=== PATIENT | male | born 1965 | race Hispanic/Latino ===

== ENCOUNTER 2024-04-30 13:18 | Emergency (ER) | payer SELFPAY ==
[2024-04-30 13:22] VITALS: BMI 29.0
[2024-04-30 13:25] VITALS: BP 145/81
[2024-04-30 13:26] VITALS: BP 145/81
[2024-04-30 13:46] LABS: % Basophils 1.2 % (0-2); % Eosinophils 2.8 % (0-6); % Immature Granulocytes 0.3 % (0-0.5); % Lymphocytes 27.9 % (20.5-51.1); % Monocytes 5.4 % (1.7-9.3); % Neutrophils 62.4 % (42.2-75.2); Absolute Basophils 0.1 10^3/uL (0-0.2); Absolute Eosinophils 0.2 10^3/uL (0-0.7); Absolute Lymphocytes 1.6 10^3/uL (1.2-3.4); Absolute Monocytes 0.3 10^3/uL (0.1-0.6); Absolute Neutrophils 3.6 10^3/uL (1.4-6.5); Hematocrit 43.9 % (39.0-52.0); Hemoglobin 14.7 g/dL (13.0-18.0); Mean Corp Hgb Conc. 33.5 g/dL (33.0-37.0); Mean Corpuscular Hgb 29.2 pg (27.0-31.0); Mean Corpuscular Volume 87.1 fL (80.0-94.0); Mean Platelet Volume 10.9 fL (7.4-10.4); Nucleated Red Blood Cells % 0 % (-); Platelet Count 190 10^3/uL (130-400); Red Blood Cell Count 5.04 10^6/uL (4.70-6.10); Red Cell Dist. Width 12.1 % (11.5-14.5); White Blood Cell Count 5.8 10^3/uL (4.8-10.8)
[2024-04-30 13:58] LABS: ALT (SGPT) 19 U/L (0-50); AST (SGOT) 22 U/L (17-59); Albumin 4.2 g/dl (3.5-5.0); Alkaline Phosphatase 75 U/L (38-126); Blood Urea Nitrogen 25 mg/dl (9-20); Calcium 9.5 mg/dl (8.4-10.2); Carbon Dioxide 27 mmol/L (22-30); Chloride 106 mmol/L (98-107); Estimated Creatinine Clearance 81 ml/min; Glucose 108 mg/dl (70-99); Potassium 4.3 mmol/L (3.5-5.1); Sodium 139 mmol/L (135-145); Total Bilirubin 0.5 mg/dl (0.2-1.3); Total Protein 6.7 g/dl (6.3-8.2); eGFR > 60.00
[2024-04-30 14:00] VITALS: BP 119/81
[2024-04-30 14:09] LABS: Troponin I < 0.012 ng/ml
[2024-04-30] MEDS: TORADOL 15 MG IV (15:00)
[2024-04-30 15:56] LABS: Troponin I < 0.012 ng/ml
--- NOTE | 2024-04-30 16:01 | ED.GENMED ---
History of Present Illness
General
Chief Complaint: Chest Pain
Time Seen by Provider: 04/30/24 13:43
History of Present Illness
History of Present Illness:
59-year-old male with no known past medical presents the emergency department for evaluation of sudden onset of chest discomfort, headache and jaw discomfort beginning while working today. 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
significantly. Symptoms have since improved after receiving baby aspirin by EMS. Has never had similar symptoms. He denies tobacco or alcohol use. No recent fevers or chills. Denies any dyspnea or pleuritic chest pain
Review of Systems
Review of Systems
Allergies reviewed?: Yes
All Other Systems: ROS reviewed and negative except as documented in HPI and ROS
Phy Exam
Physical Exam
Physical Exam:
GEN: Well appearing, NAD, WDWN
HEENT: Oral mucosa moist, no scleral icterus
Cardiac: Regular rate and rhythm, no murmur
Lung: No respiratory distress, no tachypnea, lungs clear to auscultation bilaterally
MSK: No gross deformity or injuries
Skin: Good color, no pallor or jaundice, no rashes
Neuro: AO x3, moves all extremities freely
Psych: Calm, cooperative
Scores
Heart Score for Chest Pain Patients
STEMI patient?: No
History: Slightly or Non-Suspicious
ECG: Normal
Age: >45 - <65 years
Risk Factors: 1 or 2 Risk Factors
Troponin: </= Normal Limit
Heart Score for Chest Pain Patients: 2
Heart Score Risk: 2.5% MACE over next 6 weeks
Course
Orders/Labs/Results
Orders:
Orders
04/30/24 13:23
Electrocardiogram (*1) Urgent
Reason for Study: Chest Pain
Cardiac Monitoring- Treatment ONCE
EKG- Treatment ONCE
IV Insert/Care/Rem.- Treatment PRN
O2 Therapy [RESP] Urgent
Titrate/Wean O2 to maintain O2 sat greater than (%): 90
Special Instructions: Maintain sats >/=90%
Pulse Ox/spot Check [RESP] Urgent
Quantity: 1
Special Instructions: ON ROOM AIR
04/30/24 13:25
Complete Blood Count/With Diff Urgent
Comprehensive Metabolic Panel Urgent
Troponin I Urgent
04/30/24 14:15
CR Chest - 2 Views Urgent
Comment:
Reason For Exam: chest pain
04/30/24 14:16
EKG- Treatment ONCE
04/30/24 14:49
Ketorolac [Toradol] 15 mg IV NOW STA
04/30/24 15:21
Troponin I Routine
04/30/24 15:30
EKG [Electrocardiogram (*1)] Routine
Reason for Study: Chest Pain
Abnormal Lab Results
04/30/24
13:25
MPV 10.9 H fL
(7.4-10.4)
BUN 25 H mg/dl
(9-20)
Glucose 108 H mg/dl
(70-99)
04/30/24 13:25
04/30/24 13:25
Vital Signs
Initial and Last Documented VS:
Initial Vital Signs
Temp Pulse Resp BP Pulse Ox
98.4 F 81 20 145/81 96
04/30/24 13:25 04/30/24 13:25 04/30/24 13:25 04/30/24 13:25 04/30/24 13:25
Last Documented Vital Signs
Temp Pulse Resp BP Pulse Ox
98.6 F 66 15 128/88 94
04/30/24 17:22 04/30/24 17:22 04/30/24 17:22 04/30/24 17:22 04/30/24 17:22
MDM/Problems Addressed
MDM/Problems Addressed:
EKG is nonischemic and initial and delta troponins are negative. Chest x-ray shows no evidence for acute cardiopulmonary disease. The patient's pain resolved prior to my evaluation. Low clinical suspicion for coronary disease however patient does
have a lot of family history of CAD thus will refer to cardiology through the chest pain hotline
Comment
Comment:
EKG independently interpreted by me shows normal sinus rhythm at a rate of [address] changes concerning for ischemia
*Critical Care Note
Total Time (30-74mins, 75-104mins- exclusive of procedures): Not Applicable
ED Attending Note
-
Portions of this chart may have been created with voice recognition software.� Occasional wrong word or��sound alike� substitutions may have occurred due to the inherent limitations of voice recognition software.
Discharge Plan
Departure
Patient Disposition: Home (Routine Discharge)
Date of Disposition: 04/30/24
Time of Disposition: 16:01
Patient with high blood pressure during this ER visit?: No
Discharge Problem:
Atypical chest pain
Instructions: Chest Pain DCA Follow Up
Referrals:
Camila Luna MD [Family Provider] -
Interventions
Interventions:
*Risk Screen - Suicide Last Done: 04/30/24 14:00
*General Assessment Last Done: 04/30/24 13:59
*Neglect/Abuse Screening Last Done: 04/30/24 14:00
ED- Fall Risk Assessment Last Done: 04/30/24 14:02
*ED COVID-19 Vaccine History Last Done: 04/30/24 13:59
*Nursing Disposition Last Done: 04/30/24 17:22
ED- Cardiac Assessment Last Done: 04/30/24 14:02
Discharge Date and Time
Discharge Date/Time: 04/30/24 17:23
Print Language: DANISH
[2024-04-30 17:22] VITALS: BP 128/88
== END 2024-04-30 17:23 | disposition home or self-care (01) ==
LOC: EMR 13:18
PROVIDERS: Physician Assistant; EMERGENCY PHYSICIAN Emergency Medicine; FAMILY PHYSICIAN Internal Medicine Gastroenterology
DX: R07.89 Other chest pain (principal)
CPT/HCPCS: 99284; 96374; 71046; 80053; 84484; 85025; 93005